=== PATIENT | female | born 1995 | race Caucasian/White ===

== ENCOUNTER 2017-05-22 23:14 | Emergency (ER) | payer SELFPAY ==
[~2017-05-22] VITALS: Ht 154.9 cm; Wt 47.0 kg
[2017-05-23 03:50] VITALS: BP 101/64
[2017-05-23] MEDS ORDERED: IBUPROFEN 600MG TABLET PO STA (04:07)
== END 2017-05-23 04:30 | disposition left against medical advice (07) ==
LOC: ER 23:14
DX: K13.79 Other lesions of oral mucosa (principal); K08.89 Other specified disorders of teeth and supporting structures
CPT/HCPCS: 99281